=== PATIENT | male | born 1975 | race Caucasian/White ===

== ENCOUNTER 2017-07-21 18:23 | Emergency (ER) | payer MEDICAID ==
[~2017-07-21 18:23] MED LIST: LORA1TAB PO
[2017-07-21] MEDS ORDERED: KETOROLAC 30 MG INJ ONE (22:06)
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
== END 2017-07-22 00:30 | disposition home or self-care (01) ==
LOC: FTE 18:23
DX: M25.522 Pain in left elbow (principal); M79.632 Pain in left forearm; F17.210 Nicotine dependence, cigarettes, uncomplicated; R07.9 Chest pain, unspecified
CPT/HCPCS: 71020; 73010; 73090; 73110; 96372; J1885; Z7502

== ENCOUNTER 2018-09-08 05:09 | Emergency (ER) | END 2018-09-08 06:37 | disposition home or self-care (01) ==